=== PATIENT | female | born 1990 | race Caucasian/White ===

== ENCOUNTER 2016-10-31 11:09 | Emergency (ER) | payer BC ==
--- NOTE | ~2016-10-31 | CR71 ---
[facility] A Service of [facility] & [facility] RADIOLOGY TEXT RESULTS PATIENT: MARIELA LANE LOCATION: [facility] : [birth year] UNIT #: [id number] AGE: [address]: Vasyl Richardson MD SEX: F ORDER DR: [id number] [facility] [address] [place], [place] [address] [id number] MR#: [id number] Acc #: [id number] NAME: MARIELA LANE : 1990 SEX: F STUDY DATE/TIME: 10/31/2016 11:02 UNIT: [facility] ROOM: STUDY DESCRIPTION: CR Chest Single View Attending Physician: Vasyl Richardson M.D. Ordering Physician: Ed Feng Casas M.D. Primary Care Physician: Mary Cloud A.P.R.N. MEDICAL IMAGING REPORT This report is preliminary unless electronic signature is present EXAM Frontal chest, 10/31/2016. HISTORY 26-year-old female with a cough, pain in the right ribs and chest. Bronchitis. Tobacco abuse. TECHNIQUE Frontal chest compared with 10/29/2016. FINDINGS The cardiac silhouette is within normal limits. Vascularity is unremarkable. No effusion, dense consolidation, or pneumothorax. IMPRESSION Negative frontal chest. Dictated by... Casey Hoffman M.D. THIS IS AN ELECTRONICALLY VERIFIED REPORT Casey Hoffman M.D. at 10/31/2016 4:00 PM Araceli TD: 10/31/2016 13:16 JOB #: [id number] MEDICAL IMAGING REPORT COPY
[2016-10-31 10:55] LABS: BASOPHIL% 0.2 % (0-2.5); EOSINOPHIL# 0.1 X10e3 (0-0.7); EOSINOPHIL% 1.4 % (0.0-7.0); HEMATOCRIT 44.1 % (35.0-45.0); HEMOGLOBIN 14.7 gm/dL (12.0-16.0); LYMPHOCYTE# 1.6 X10e3 (1.0-3.5); LYMPHOCYTE% 22.4 % (17.0-45.0); MEAN CORPUSCULAR HEMOGLOBIN 28.3 PG (28-34); MEAN CORPUSCULAR HGB CONC 33.3 g/dL (30-36); MEAN PLATELET VOLUME 8.5 FL (6.5-11.5); MONOCYTE# 0.6 X10e3 (0-1.0); NEUTROPHIL# 4.8 X10e3 (1.5-7.1); PLATELET COUNT 242 X10e3 (140-420); RED BLOOD COUNT 5.19 X10e (3.90-5.30); RED CELL DISTRIBUTION WIDTH 14.2 % (11.0-15.5); WHITE BLOOD COUNT 7.1 X10e3 (4.0-10.5)
[2016-10-31 10:57] LABS: DIFF IND NO
[~2016-10-31 11:09] MED LIST: AMOXICILLIN PO; CELEXA20 MG PO; DESYREL50 M1 PO; IBUPROFEN800 MG PO; LORTAB 5/500 TA1 TA1 PO; NAPROXEN PO; PHENERGAN25 M1 DOB; SEASONIQUE1 BLIST PA PO; YAZ 28 TABLET1 TAB PO; ZOLOFT PO
[2016-10-31 11:22] LABS: ALBUMIN SERUM 4.3 g/dL (3.5-5.0); ALKALINE PHOSPHATASE 100 U/L (32-92); ALT (SGPT) 33 U/L (10-40); AST (SGOT) 23 U/L (10-42); BILIRUBIN, DIRECT 0.1 mg/dL (0.0-0.2); BILIRUBIN,INDIRECT 0.5 mg/dL (0.0-0.9); BILIRUBIN,TOTAL 0.6 mg/dL (0.2-2.0); BLOOD UREA NITROGEN 14 mg/dL (9-23); CALCIUM SERUM 9.4 mg/dL (8.4-10.2); CARBON DIOXIDE 23 mmol/L (22-31); CHLORIDE 102 mmol/L (100-111); CREATININE SERUM 0.7 mg/dL (0.6-1.4); GLOM FILT RATE Estimated ABOVE60 mL/min (>60); GLUCOSE FASTING 107 mg/dL (70-110); POTASSIUM 3.6 mmol/L (3.5-5.1); SODIUM 137 mmol/L (135-145)
== END 2016-10-31 12:17 | disposition home or self-care (01) ==
LOC: CED 11:09
PROVIDERS: Emergency Medicine
DX: R05 Cough (principal); F17.210 Nicotine dependence, cigarettes, uncomplicated; F32.9 Major depressive disorder, single episode, unspecified; F41.9 Anxiety disorder, unspecified; Z91.040 Latex allergy status
CPT/HCPCS: 36415; 71010; 80048; 80076; 84703; 85025; 85379; 96361; 96374; 99284; J1885